=== PATIENT | female | born 2000 | race Caucasian/White ===

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

== ENCOUNTER 2021-02-01 11:28 | Emergency (ER) | payer BC, OTHER ==
[2021-02-01] MEDS ORDERED: Acetaminophen 500 MG TAB ONE (12:03)
[2021-02-01] MEDS ORDERED: Ibuprofen 200 MG TAB ONE (12:03)
[2021-02-01 12:38] LABS: BHCG - Serum Negative (NEGATIVE); Pregs Control Background? CLEAR/WHITE (CLR/WHITE); Pregs Control Bar Appear? YES (CONTROL BAR)
== END 2021-02-01 13:29 | disposition home or self-care (01) ==
LOC: ERS 11:28
DX: R10.2 Pelvic and perineal pain (principal)
CPT/HCPCS: 36415; 76856; 84703

== ENCOUNTER 2022-03-09 13:06 | Outpatient (CLI) | payer BC | END 2022-03-09 13:07 | disposition home or self-care (01) | LOC: TBSIIMAG 13:06 | PROVIDERS: ATTEND Neurological Surgery | DX: M50.122 Cervical disc disorder at C5-C6 level with radiculopathy (principal) | CPT/HCPCS: 72141 ==

== ENCOUNTER 2022-11-02 19:30 | Emergency (ER) | payer BC, OTHER ==
[2022-11-02 20:17] LABS: #Eosinphils 0.3 thou/uL (0.0-0.7); #Monocytes 0.6 thou/uL (0.11-0.59); %Basophils 0.4 % (0.0-1.0); %Eosinophils 3.7 % (0.0-10.0); %Lymphocytes 24.4 % (21.0-51.0); %Monocytes 6.2 % (0.0-10.0); %Neutrophils 65.1 % (42.0-75.0); Hemoglobin 13.6 g/dL (12.0-16.0); Mean Corpuscular Hemoglobin 27.3 pg (27.0-31.0); Mean Corpuscular Volume 85.2 fl (78.0-98.0); Mean Platelet Volume 9.6 fL (7.4-10.4); Platelet Count 285 10x3/uL (130-400); RBC Distribution Width 13.2 % (11.5-14.5); Red Blood Cell (RBC) Count 4.99 mill/uL (4.20-5.40); White Blood Cell (WBC) Count 9.3 10x3/uL (4.8-10.8)
[2022-11-02 20:45] LABS: ALT (SGPT) 11 U/L (8-55); AST (SGOT) 14 U/L (5-34); Albumin 4.1 g/dL (3.5-5.0); Alkaline Phosphatase 46 U/L (40-110); Anion Gap 12 mmol/L (10-20); BUN (Urea Nitrogen) 8 mg/dL (7.0-18.7); Bilirubin, Total 0.4 mg/dL (0.2-1.2); Calc. Creatinine Clearance 0 mL/min (70-130); Calcium 8.9 mg/dL (7.8-10.44); Carbon Dioxide 23 mmol/L (22-29); Chloride 105 mmol/L (98-107); Estimated GFR 109; Globulin 2.8 g/dL (2.4-3.5); Glucose 91 mg/dL (70-105); Potassium 4.2 mmol/L (3.5-5.1); Protein, Total 6.9 g/dL (6.0-8.3); Sodium 136 mmol/L (136-145)
== END 2022-11-02 23:41 | disposition left against medical advice (07) ==
LOC: ERS 19:30
DX: Z53.21 Procedure and treatment not carried out due to patient leaving prior to being seen by health care provider (principal)
CPT/HCPCS: 36415; 80053; 85025

== ENCOUNTER 2023-07-26 20:22 | Emergency (ER) | payer BC, MEDICAID, SELFPAY ==
[2023-07-26 20:49] LABS: Bacteria/HPF None Seen HPF (None Seen); Bilirubin Negative (Negative); Blood, Urine 2+ (Negative); CAUTI Indications for Culture Dysuria,urgency,freq; Clarity Clear (Clear); Glucose, Urine (Dipstick) Normal (Negative); Ketone, Urine Negative (Negative); Leukocyte 250 Leu/uL (Negative); Nitrite Negative (Negative); Protein, Urine (Dipstick) Negative (Neg-Trace); Specific Gravity, Urine 1.012 (1.002-1.036); Squamous Epithelial 0-3 HPF (0-3); Urobilinogen Normal mg/dL (Less than 2); pH, Urine 5.5 (5.0-9.0)
[2023-07-26 20:50] LABS: Urine Culture Reflex No No
[2023-07-26 20:55] LABS: #Eosinphils 0.1 thou/uL (0.0-0.7); #Monocytes 0.5 thou/uL (0.11-0.59); #Neutrophils 10.7 thou/uL (1.40-6.50); %Basophils 0.2 % (0.0-1.0); %Eosinophils 0.5 % (0.0-10.0); %Lymphocytes 8.7 % (21.0-51.0); %Monocytes 3.9 % (0.0-10.0); %Neutrophils 86.5 % (42.0-75.0); Hematocrit 42.3 % (36.0-47.0); Hemoglobin 12.9 g/dL (12.0-16.0); Mean Corpuscular HGB CONC 30.5 g/dL (32.0-36.0); Mean Corpuscular Volume 78.6 fl (78.0-98.0); Mean Platelet Volume 10.8 fL (7.4-10.4); Platelet Count 297 10x3/uL (130-400); RBC Distribution Width 16.6 % (11.5-14.5); Red Blood Cell (RBC) Count 5.38 mill/uL (4.20-5.40); White Blood Cell (WBC) Count 12.3 10x3/uL (4.8-10.8)
[2023-07-26 21:20] LABS: ALT (SGPT) 18 U/L (8-55); AST (SGOT) 17 U/L (5-34); Albumin 4.4 g/dL (3.5-5.0); Alkaline Phosphatase 83 U/L (40-110); Anion Gap 15 mmol/L (10-20); BUN (Urea Nitrogen) 11 mg/dL (7.0-18.7); Bilirubin, Total 0.5 mg/dL (0.2-1.2); Calc. Creatinine Clearance 0 mL/min (70-130); Carbon Dioxide 24 mmol/L (22-29); Chloride 104 mmol/L (98-107); Estimated GFR 79; Globulin 3.1 g/dL (2.4-3.5); Glucose 103 mg/dL (70-105); Potassium 3.7 mmol/L (3.5-5.1); Protein, Total 7.5 g/dL (6.0-8.3); Sodium 139 mmol/L (136-145)
[2023-07-26] MEDS ORDERED: Ibuprofen 200 MG TAB ONE (22:59)
[2023-07-26] MEDS ORDERED: cefTRIAXone (ROCEPHIN) 2 GM VIAL ONE (23:00)
[2023-07-26] MEDS ORDERED: Sodium Chloride 0.9% 100 ML ONE (23:00)
== END 2023-07-27 01:26 | disposition short-term general hospital (02) ==
LOC: ERS 20:22
DX: O73.1 Retained portions of placenta and membranes, without hemorrhage (principal)
CPT/HCPCS: 36415; 76856; 80053; 81001; 83605; 85025; 87040; 96361; 96365; 96366; J0696; J3490